=== PATIENT | male | born 1980 | race Caucasian/White ===

== ENCOUNTER 2022-03-17 00:46 | Emergency (ER) | payer MEDICAID ==
[2022-03-17 00:54] VITALS: BP 147/61
== END 2022-03-17 01:29 | disposition left against medical advice (07) ==
LOC: ED 00:46
DX: Z53.21 Procedure and treatment not carried out due to patient leaving prior to being seen by health care provider (principal)
CPT/HCPCS: 80053; 83690; 85025

== ENCOUNTER 2023-03-02 12:07 | Outpatient (CLI) | payer MEDICAID ==
--- NOTE | 2023-03-02 13:02 | XRAY Report ---
PROCEDURE: Knee 3 View BILAT INDICATIONS: TGCT TECHNIQUE: 4 views of each knee(s) were acquired. COMPARISON: None. FINDINGS: Bones: No fractures or dislocations. No suspicious bony lesions. Sequela of prior right ACL recon struction. Soft tissues: No knee joint effusion. No suspicious soft tissue calcifications or masses. IMPRESSION: Postsurgical changes of right ACL reconstruction. No concerning osseous lesion identified. Recommend correlating with prior imaging if available. Reviewed by: Melchor Aviles MD on 03/02/2023 12:00 PM [facility] Approved by: Melchor Aviles MD on 03/02/2023 12:00 PM [facility] Station ID: [id number]
== END 2023-03-02 12:08 | disposition home or self-care (01) ==
LOC: DI 12:07
PROVIDERS: ATTEND Physician Assistant
DX: D48.19 Other specified neoplasm of uncertain behavior of connective and other soft tissue (principal)

== ENCOUNTER 2023-04-03 15:30 | Outpatient (CLI) | payer MEDICAID ==
[~2023-04-03 15:30] MED LIST: GADOTERATE MEGLUMINE 2.5 MMOL/5 ML VIAL ONE; GADOTERATE MEGLUMINE 5 MMOL/10 ML VIAL ONE
[2023-04-03] MEDS ORDERED: GADOTERATE MEGLUMINE 5 MMOL/10 ML VIAL IVP ONE (16:35)
--- NOTE | 2023-04-07 10:20 | MRI Report ---
PROCEDURE: KNEE W/WO - RT INDICATIONS: TENOSYNOVIAL GIANT CELL TUMOR CONTRAST: CLARISCAN 11.8 ML TECHNIQUE: Noncontrast sagittal PD fast spin echo and T2 fast spin echo with fat saturation, sagittal 3-D spoile d GE with fat saturation; coronal T1 spin echo and PD fast spin echo with fat saturation, and axial T 1 spin echo and PD fast spin echo with fat saturation through the knee. Post-contrast axial, coronal , and sagittal T1 spin echo with fat saturation through the knee. COMPARISON: Bilateral knee radiograph dated 03/02/2023. FINDINGS: Image quality: Excellent. Menisci: Truncated appearance involving body and posterior horn of medial meniscus is seen suggestive of prior partial meniscectomy. The lateral meniscus is intact. The meniscal root ligaments appear in tact. Cruciate ligaments: There is prior ACL reconstruction. ACL graft is intact. No signal abnormality is seen in tibial condyle or femoral condyle. No abnormal bowing of the ACL graft to suggest impingement . The PCL is intact. Medial structures: The medial collateral ligament appears thickened at its femoral insertion. Visual ized portions of the pes anserinus tendons appear normal. No abnormal bursal fluid. Lateral structures: The lateral collateral ligament is mildly thickened. The long and short heads of the biceps femoris tendon appear intact. The popliteus tendon appears normal. Iliotibial band appea rs normal. Anterior structures: The quadriceps and patellar tendons appear intact. Patellar alignment is riley l. No femoral trochlear dysplasia or ventral trochlear prominence. No edema in the infrapatellar fa t pad. Bones and cartilage: No suspicious osseous enhancement. No bone marrow contusions or fractures. 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 Low-grade ch ondromalacia is also seen in medial facet of patella cartilage. Joint space: There is small knee joint fluid. There is a tiny Guevara's cyst. Normal appearing synovi al plicae are incidentally noted. No suspicious soft tissue enhancement. IMPRESSION: 1. No enhancing soft tissue mass or drainable fluid collection. No area of abnormal intraosseous enha ncement. 2. Prior ACL reconstruction with postsurgical changes. No gross marrow edema. No acute fracture or di slocation. Mild tricompartmental osteoarthritis and low-grade chondromalacia more notably in medial f emoral tibial compartment and medial facet of patella cartilage. Small joint effusion, no gross loose bodies. Tiny Guevara's cyst. 3. ACL graft is intact. The PCL is intact. 4. Suggestion of prior partial meniscectomy involving posterior horn of medial meniscus suggests clin ical correlation. No evidence of recurrent tear. The lateral meniscus is intact. 5. Low-grade MCL and proximal LCL sprain. Reviewed by: Kyle García MD on 04/07/2023 10:18 AM [facility] [place] Approved by: Kyle García MD on 04/07/2023 10:18 AM PST Station ID: [id number]
== END 2023-04-03 15:31 | disposition home or self-care (01) ==
LOC: DI 15:30
PROVIDERS: ATTEND Physician Assistant
DX: D48.19 Other specified neoplasm of uncertain behavior of connective and other soft tissue (principal); M17.11 Unilateral primary osteoarthritis, right knee; M22.41 Chondromalacia patellae, right knee; M25.461 Effusion, right knee; M71.21 Synovial cyst of popliteal space [Baker], right knee; S83.411A Sprain of medial collateral ligament of right knee, initial encounter; S83.421A Sprain of lateral collateral ligament of right knee, initial encounter
CPT/HCPCS: 73723; A9575